=== PATIENT | female | born 1950 | race Caucasian/White ===

== ENCOUNTER → 2018-01-05 | Outpatient (REF) | payer BC, OTHER ==
[2018-01-05 11:09] LABS: INR 4.41; PROTHROMBIN TIME 43.2 SECONDS (12.1-14.4)
== END ==
LOC: M LAB REF 10:48
DX: Z79.01 Long term (current) use of anticoagulants (principal)
CPT/HCPCS: 85610

== ENCOUNTER → 2018-06-28 | Outpatient (CLI) | payer MEDICARE ==
[~2018-06-28] MED LIST: /METO2TASA PO; /PRAV20TA PO; ACET-654 PO; DIOV320T PO; MAXZTA PO; OMEP20CA3 PO; ZOFR4TAB3 PO; vit d PO
--- NOTE | 2018-06-29 08:05 | REP ---
PET/CT: History: History of cervical carcinoma. Solitary pulmonary nodule. Comparison CT study of the chest dated May 30, 2018 from [facility]. TECHNIQUE: 54 minutes following the intravenous injection of a 7.3 mCi dose of F-18 FDG, three-dimensional PET scintigraphy is acquired from the skull base to the proximal thighs. Triplanar noncontrast CT scanning is acquired through the same anatomic range for attenuation correction, and image registration with scan parameters optimized to minimize radiation exposure to the patient. PET scintigraphy and CT datasets were fused and displayed on a workstation with multiplanar and projection display capability. PET/CT Findings: There is no abnormal hypermetabolic uptake in the chest. Maximum standard uptake value in the right middle lobe nodule is 0.67. Maximum standard uptake value in the left lower lobe nodule is 1.5. No abnormal uptake is seen in the either hilus or mediastinum. The head and neck soft tissues are unremarkable. No abnormal hypermetabolic uptake is seen in the abdomen or pelvis. No abnormal chas uptake is seen. No abnormal skeletal hypermetabolic uptake is observed. Impression: Negative PET scintigraphy. Neither the right middle lobe nor the left lower lobe pulmonary nodules show hypermetabolic uptake. Consider followup CT scanning. Electronically Signed by Sam Zazueta MD 06/29/2018 06:41 P
== END ==
LOC: M PLARAD 10:20
PROVIDERS: ATTEND Internal Medicine Pulmonary Disease
DX: R91.1 Solitary pulmonary nodule (principal)
CPT/HCPCS: 78815; A9552

== ENCOUNTER → 2018-08-15 | Outpatient (CLI) | payer MEDICARE ==
--- NOTE | 2018-08-15 14:40 | REP ---
CT CHEST WITHOUT CONTRAST: HISTORY: Solitary pulmonary nodule. Comparison is made with chest CT study from May 30, 2018 and PET/CT from June 28, 2018. The patient has a history of cervical carcinoma. Prior chest CT study showed new pulmonary nodules in the right middle lobe and left lower lobe. CT FINDINGS: There is a left-sided Najmtl-I-Cidq catheter with its tip in the superior vena cava. Vascular calcification is seen in the coronary arteries. No adrenal lesion is seen. There is no evidence of pleural or pericardial effusion. Cardiomegaly is observed. The right middle lobe nodule is again seen, 7 mm in diameter, without discernible calcification. It is felt to be unchanged from the May 30, 2018 study. There is a 11 mm nodule in the left lower lobe with a central punctate calcifications suggesting a granulomatous nodule. This too is unchanged from the study done May 30, 2018. No new pulmonary nodule is appreciated. No bony destructive lesion. IMPRESSION: Stable right middle lobe and left lower lobe nodules unchanged from May 30, 2018. Electronically Signed by Sam Zazueta MD 08/15/2018 02:50 P
== END ==
LOC: M RAD 11:53
PROVIDERS: ATTEND Internal Medicine Pulmonary Disease
DX: R91.1 Solitary pulmonary nodule (principal); I51.7 Cardiomegaly

== ENCOUNTER → 2019-02-13 | Outpatient (CLI) | payer MEDICARE ==
[~2019-02-13] MED LIST changes: -/METO2TASA PO; -/PRAV20TA PO; +METO-1 PO; +ONDA-228 PO; +PRAV1TAB39 PO; -ZOFR4TAB3 PO
--- NOTE | 2019-02-13 12:38 | REP ---
CT of the chest for follow up of lung nodules: The study is performed without IV contrast. Comparisons are 08/15/2018 and 03/07/2009. There is a 7 mm nodule in the right middle lobe, unchanged in size. I suspect there is a punctate calcification within this nodule on the study today. There is an 11 mm lung nodule in the left lower lobe, unchanged in size. There is a punctate calcification within this nodule, similar to the prior study. There are no other lung nodules. There are no infiltrates. There are no pleural effusions. There is a small focal zone of discoid atelectasis anteriorly in the right upper lobe. There is no mediastinal lymphadenopathy. The study is insensitive for hilar lymphadenopathy in the absence of IV contrast. There is no axillary lymphadenopathy. The thoracic aorta is unremarkable. Cardiac size is enlarged. There is no pericardial effusion. There is calcified atheroma in the coronary arteries. Upper abdomen: The visualized areas of the unenhanced liver, pancreas, spleen, adrenals and kidneys are unremarkable. The patient reportedly has a cholecystectomy. Impression: No change in size of the patient's known two lung nodules. I suspect there are punctate calcifications within each nodule. Electronically Signed by Milton Blank MD 02/13/2019 12:30 P
== END ==
LOC: M RAD 10:52
PROVIDERS: ATTEND Internal Medicine Pulmonary Disease
DX: R91.1 Solitary pulmonary nodule (principal)

== ENCOUNTER → 2019-08-10 | Outpatient (CLI) | payer MEDICARE ==
--- NOTE | 2019-08-10 13:36 | REP ---
CT CHEST WITHOUT CONTRAST: HISTORY: Other nonspecific abnormal finding of the lung field. The patient gives a history of primary carcinoma of the cervix. Comparison chest CT studies are reviewed from February 13, 2019, August 15, 2018, and May 30, 2018. CT FINDINGS: The previously noted left lower lobe nodule is again seen measuring 10 mm in greatest diameter. It is unchanged in size. There is a benign-appearing central calcification within this nodule consistent with its being a granuloma. There is a granulomatous calcification in the spleen. The previously noted right middle lobe nodule is again visible today and is unchanged measuring 7 mm in greatest diameter. This is unchanged from study done May 30, 2018. No other pulmonary nodule is appreciated. There is minimal linear fibrosis in the right middle lobe. Cardiomegaly and vascular calcification are again observed. No mediastinal or hilar adenopathy is observed. No adrenal lesion is seen. IMPRESSION: Bilateral stable nodules left lower lobe and right middle lobe as above. Electronically Signed by Sam Zazueta MD 08/10/2019 02:55 P
== END ==
LOC: M RAD 11:01
PROVIDERS: ATTEND Internal Medicine Pulmonary Disease
DX: R91.8 Other nonspecific abnormal finding of lung field (principal)

== ENCOUNTER → 2020-01-24 | Outpatient (REF) | payer MEDICARE ==
[2020-01-24 19:39] LABS: PERCENT SATURATION 5.2 % (13.2-45.0)
== END ==
LOC: M LAB REF 18:04
PROVIDERS: ATTEND Internal Medicine
DX: N18.3 Chronic kidney disease, stage 3 (moderate) (principal); D63.1 Anemia in chronic kidney disease

== ENCOUNTER → 2020-05-27 | Outpatient (REF) | payer MEDICARE ==
[2020-05-27 18:01] LABS: PERCENT SATURATION 32.5 % (13.2-45.0)
== END ==
LOC: M LAB REF 16:26
PROVIDERS: ATTEND Internal Medicine
DX: D50.9 Iron deficiency anemia, unspecified (principal)

== ENCOUNTER → 2020-11-05 | Outpatient (REF) | payer MEDICARE ==
[2020-11-05 17:23] LABS: PERCENT SATURATION 21.7 % (13.2-45.0)
== END ==
LOC: M LAB REF 16:16
PROVIDERS: ATTEND Internal Medicine
DX: D50.9 Iron deficiency anemia, unspecified (principal)

== ENCOUNTER → 2021-02-18 | Outpatient (REF) | payer MEDICARE | LOC: M LAB REF 11:35 | PROVIDERS: ATTEND Nurse Practitioner Adult Health | DX: R35.0 Frequency of micturition (principal) ==

== ENCOUNTER → 2021-09-09 | Outpatient (REF) | payer MEDICARE | LOC: M LAB REF 16:47 | PROVIDERS: ATTEND Nurse Practitioner Adult Health | DX: N18.31 Chronic kidney disease, stage 3a (principal) ==

== ENCOUNTER → 2023-01-29 | Outpatient (CLI) | payer MEDICARE | LOC: M CARPUL 08:51 | PROVIDERS: ATTEND Internal Medicine | DX: I48.21 Permanent atrial fibrillation (principal); I35.0 Nonrheumatic aortic (valve) stenosis; I36.1 Nonrheumatic tricuspid (valve) insufficiency; I27.20 Pulmonary hypertension, unspecified ==

== ENCOUNTER → 2023-05-19 | Outpatient (REF) | payer MEDICARE, OTHER | LOC: M SFHCDERM 13:51 | PROVIDERS: ATTEND Physician Assistant | DX: D23.22 Other benign neoplasm of skin of left ear and external auricular canal (principal); L57.8 Other skin changes due to chronic exposure to nonionizing radiation ==

== ENCOUNTER → 2023-06-02 | Outpatient (REF) | payer MEDICARE, OTHER | LOC: M SFHCDERM 16:55 | PROVIDERS: ATTEND Physician Assistant | DX: C44.519 Basal cell carcinoma of skin of other part of trunk (principal) ==

== ENCOUNTER → 2023-08-10 | Outpatient (REF) | payer MEDICARE, OTHER | LOC: M SFHCPLAZ 17:32 | PROVIDERS: ATTEND Dermatology | DX: C44.519 Basal cell carcinoma of skin of other part of trunk (principal) ==

== ENCOUNTER → 2023-11-02 | Outpatient (REF) | payer MEDICARE, OTHER ==
[2023-11-02 18:58] LABS: PERCENT SATURATION 20.4 % (13.2-45.0)
== END ==
LOC: M LAB REF 16:32
PROVIDERS: ATTEND Internal Medicine
DX: N18.31 Chronic kidney disease, stage 3a (principal)